=== PATIENT | male | born 1995 | race Two or more races ===

== ENCOUNTER 2022-01-13 13:46 | Emergency (ER) | payer MEDICAID ==
[2022-01-13] MEDS ORDERED: Diphtheria,Pertussis(Acell),Tetanus Vaccine 0.5 ML Syringe IM ONE (15:29)
== END 2022-01-13 17:05 | disposition home or self-care (01) ==
LOC: JD.ED 13:46
DX: T23.242A Burn of second degree of multiple left fingers (nail), including thumb, initial encounter (principal); F17.210 Nicotine dependence, cigarettes, uncomplicated; Z23 Encounter for immunization; W39.XXXA Discharge of firework, initial encounter
CPT/HCPCS: 73130-26-LT; 73130-LT; 90471; 90715; 99283; 99283-25